=== PATIENT | female | born 1955 ===

== ENCOUNTER 2023-08-18 07:20 | Day surgery (SDC) | payer OTHER | END 2023-08-18 17:05 | disposition home or self-care (01) | LOC: CIR.AMB 07:20 | PROVIDERS: ATTEND Colon & Rectal Surgery | DX: R15.9 Full incontinence of feces (principal); T85.111A Breakdown (mechanical) of implanted electronic neurostimulator of peripheral nerve electrode (lead), initial encounter; T85.732A Infection and inflammatory reaction due to implanted electronic neurostimulator of peripheral nerve, electrode (lead), initial encounter; Z20.822 Contact with and (suspected) exposure to COVID-19 | CPT/HCPCS: 64581; 64590; 95971; C1767; C1778 ==